=== PATIENT | male | born 1960 | race Caucasian/White ===

== ENCOUNTER 2020-07-28 15:47 | Emergency (ER) | payer OTHER ==
[2020-08-13] MEDS ORDERED: FLOMAX 0.4 MG0.4 MG PO (10:14)
[2020-08-13] MEDS ORDERED: VITAMIN D PO (10:15)
[2020-08-13] MEDS ORDERED: LO-DOSE ASPIRIN81 MG PO (10:15)
[2020-08-13] MEDS ORDERED: LISINOPRIL20 MG PO (10:15)
[2020-08-13] MEDS ORDERED: NITROSTAT0.3 MG SL (10:16)
[2020-08-13] MEDS ORDERED: IBU800 MG PO (10:16)
== END 2020-07-28 17:00 | disposition left against medical advice (07) ==
LOC: ER1 15:47
DX: M54.9 Dorsalgia, unspecified (principal); Z87.442 Personal history of urinary calculi; Z53.21 Procedure and treatment not carried out due to patient leaving prior to being seen by health care provider
CPT/HCPCS: J7120

== ENCOUNTER 2020-07-29 08:19 | Emergency (ER) | payer OTHER ==
[2020-07-29 09:21] LABS: HEMOGLOBIN 11.8 gm/dl (14.0-17.5); RED BLOOD COUNT 4.3 M/UL (4.20-5.50)
[2020-08-13] MEDS ORDERED: FLOMAX 0.4 MG0.4 MG PO (10:14)
[2020-08-13] MEDS ORDERED: LO-DOSE ASPIRIN81 MG PO (10:15)
[2020-08-13] MEDS ORDERED: VITAMIN D PO (10:15)
[2020-08-13] MEDS ORDERED: LISINOPRIL20 MG PO (10:15)
[2020-08-13] MEDS ORDERED: IBU800 MG PO (10:16)
[2020-08-13] MEDS ORDERED: NITROSTAT0.3 MG SL (10:16)
== END 2020-07-29 16:10 | disposition other institution (70) ==
LOC: ER1 08:19
PROVIDERS: Physician Assistant Medical
DX: N13.2 Hydronephrosis with renal and ureteral calculous obstruction (principal); N17.9 Acute kidney failure, unspecified; D72.829 Elevated white blood cell count, unspecified; R79.89 Other specified abnormal findings of blood chemistry; I10 Essential (primary) hypertension; F17.210 Nicotine dependence, cigarettes, uncomplicated; Z79.899 Other long term (current) drug therapy; Z79.82 Long term (current) use of aspirin
CPT/HCPCS: 80053; 81001; 85025; 87086; 96374; 96375; 96376; 99285; J1885; J2270; J2405; J7120

== ENCOUNTER → 2020-08-13 | Outpatient (CLI) | payer OTHER ==
[~2020-08-13] MED LIST: FLOMAX 0.4 MG0.4 MG PO; IBU800 MG PO; LISINOPRIL20 MG PO; LO-DOSE ASPIRIN81 MG PO; NITROSTAT0.3 MG SL; VITAMIN D PO
== END ==
LOC: OPSV2 09:30
DX: Z01.810 Encounter for preprocedural cardiovascular examination (principal)
CPT/HCPCS: 93005

== ENCOUNTER → 2020-08-16 | Day surgery (SDC) | payer OTHER ==
[2020-08-20 18:12] LABS: COLOR Tan (.); URIC ACID 100 % (.); WEIGHT 29 mg (.)
== END | disposition home or self-care (01) ==
LOC: OR 11:34
PROVIDERS: Urology
DX: N20.1 Calculus of ureter (principal); E78.5 Hyperlipidemia, unspecified; I10 Essential (primary) hypertension; M19.90 Unspecified osteoarthritis, unspecified site; J30.9 Allergic rhinitis, unspecified; J43.9 Emphysema, unspecified; Z87.442 Personal history of urinary calculi; F17.210 Nicotine dependence, cigarettes, uncomplicated; Z79.82 Long term (current) use of aspirin; Z79.899 Other long term (current) drug therapy; Z83.3 Family history of diabetes mellitus; Z82.49 Family history of ischemic heart disease and other diseases of the circulatory system; Z82.61 Family history of arthritis; Z81.8 Family history of other mental and behavioral disorders; Z80.9 Family history of malignant neoplasm, unspecified; Z20.822 Contact with and (suspected) exposure to COVID-19
CPT/HCPCS: C1769; C1894; C2617; J1100; J1885; J1956; J2001; J2250; J2370; J2405; J2704; J3010; J7030; J7120

== ENCOUNTER → 2021-04-11 | Outpatient (CLI) | payer OTHER | LOC: RAD 10:41 | DX: N20.0 Calculus of kidney (principal) | CPT/HCPCS: 74018 ==

== ENCOUNTER → 2021-05-31 | Outpatient (CLI) | payer OTHER | LOC: KOH-I 13:00 | DX: N50.819 Testicular pain, unspecified (principal); N50.3 Cyst of epididymis | CPT/HCPCS: 76870 ==

== ENCOUNTER 2022-01-29 09:25 | Emergency (ER) | payer OTHER ==
[2022-01-29 10:06] LABS: HEMOGLOBIN 13.2 gm/dl (14.0-17.5); RED BLOOD COUNT 4.77 M/UL (4.20-5.50); WHITE BLOOD COUNT 20.5 K/UL (4.5-11.0)
[2022-01-29] MEDS ORDERED: FLOMAX0.4 MG PO (11:44)
[2022-01-29] MEDS ORDERED: OMNICEF 300 MG300 MG PO (11:44)
[2022-01-29] MEDS ORDERED: PERCOCET 5/325 T1 EA PO (11:45)
== END 2022-01-29 12:17 | disposition home or self-care (01) ==
LOC: ER1 09:25
PROVIDERS: Nurse Practitioner
DX: N13.2 Hydronephrosis with renal and ureteral calculous obstruction (principal); F17.200 Nicotine dependence, unspecified, uncomplicated; I10 Essential (primary) hypertension; Z87.442 Personal history of urinary calculi
CPT/HCPCS: 80053; 81001; 85025; 87086; 96374; 96375; 99284; J0696; J1885; J2270

== ENCOUNTER 2022-01-31 09:29 | Emergency (ER) | payer OTHER ==
[~2022-01-31 09:29] MED LIST changes: +FLOMAX0.4 MG PO; +OMNICEF 300 MG300 MG PO; +PERCOCET 5/325 T1 EA PO
[2022-01-31 11:30] LABS: HEMOGLOBIN 11.4 gm/dl (14.0-17.5); WHITE BLOOD COUNT 17.5 K/UL (4.5-11.0)
[2022-01-31 11:32] LABS: RED BLOOD COUNT 4.16 M/UL (4.20-5.50)
== END 2022-01-31 14:08 | disposition other institution (70) ==
LOC: ER1 09:29
PROVIDERS: Student in an Organized Health Care Education/Training Program
DX: N17.9 Acute kidney failure, unspecified (principal); N13.2 Hydronephrosis with renal and ureteral calculous obstruction; I10 Essential (primary) hypertension; F17.210 Nicotine dependence, cigarettes, uncomplicated; Z87.442 Personal history of urinary calculi
CPT/HCPCS: 80053; 81001; 85025; 96374; 96375; 99284; J1170; J2270

== ENCOUNTER → 2022-03-03 | Outpatient (CLI) | payer OTHER | LOC: CT 09:55 | DX: N28.89 Other specified disorders of kidney and ureter (principal); R31.9 Hematuria, unspecified; Q61.02 Congenital multiple renal cysts; N20.0 Calculus of kidney | CPT/HCPCS: 74170; Q9967 ==